=== PATIENT | female | born 1990 | race Caucasian/White ===

== ENCOUNTER 2018-05-19 12:50 | Inpatient (IN) | payer OTHER ==
[~2018-05-19] VITALS: Ht 160 cm; Wt 50.3 kg
[~2018-05-19 12:50] MED LIST: IBU-6600 MG PO; MOTRIN 600600 MG/TAB PO; PERCOCET 325 MG1 TA2 PO; PRENATAL1 TA1 PO; SENOKOT S 50 MG1 TAB PO
[2018-05-19] MEDS ORDERED: MONO-LINYAH 351 TAB PO (13:22)
[2018-05-19 14:40] VITALS: BP 117/66; PULSE 102; TEMP 98.8
[2018-05-19 15:35] VITALS: BP 117/66; PULSE 101; TEMP 98.7
[2018-05-19 19:23] VITALS: BP 99/52; PULSE 88; TEMP 98.4
[2018-05-19 23:36] VITALS: BP 90/48; PULSE 84; TEMP 98.2
[2018-05-20 04:11] VITALS: BP 105/54; PULSE 76; TEMP 98.1
[2018-05-20 07:18] LABS: MEAN CELL VOLUME 93 fl (80.0-100.0); MEAN CORPUSCULAR HEMOGLOBIN 31 pg (27.0-31.0); MEAN CORPUSCULAR HGB CONC 34 g/dl (33.0-37.0); MEAN PLATELET VOLUME 11.3 fl (7.4-10.4); PLATELET COUNT 222 K/mm3 (130-400); RED BLOOD COUNT 3.82 M/mm3 (4.10-5.30); REDCELL DISTRIBUTION WIDTH-CV 11.4 % (11.5-14.5)
[2018-05-20 07:24] LABS: HEMATOCRIT 35.4 % (37.0-47.0)
[2018-05-20 07:28] LABS: CALCIUM 8.1 mg/dL (8.4-10.2); CREATININE, serum 0.57 mg/dL (0.52-1.25); POTASSIUM 3.9 mmol/L (3.4-5.0)
[2018-05-20 07:56] VITALS: BP 108/55; PULSE 76; TEMP 98.1
[2018-05-20 09:26] LABS: BAND 4 % (0-10); BASOPHIL 1 % (0-2); LYMPHOCYTE 21 % (20.0-51.0); NEUTROPHILS 71 % (42.0-75.2); PLATELET ESTIMATE NORMAL (NORMAL)
[2018-05-20 12:02] VITALS: BP 94/55; PULSE 69; TEMP 98.7
[2018-05-20 16:29] VITALS: BP 94/54; PULSE 70; TEMP 98.5
[2018-05-20 20:00] VITALS: BP 105/61; PULSE 86; TEMP 98
[2018-05-21 04:00] VITALS: BP 88/48; PULSE 60; TEMP 98
[2018-05-21 08:42] VITALS: PULSE 66; TEMP 68.2
== END 2018-05-21 10:40 | disposition home or self-care (01) | DRG 373 ==
LOC: COL.ER 12:50 → SURG 13:55
PROVIDERS: Surgery
DX: K35.3 Acute appendicitis with localized peritonitis (principal)
CPT/HCPCS: J1956; J2270; J2405; J2543; J7030; Q9967

== ENCOUNTER 2018-06-12 19:41 | Emergency (ER) | payer OTHER ==
[~2018-06-12] VITALS: Ht 160 cm; Wt 51.8 kg
[~2018-06-12 19:41] MED LIST changes: +MONO-LINYAH 351 TAB PO
[2018-06-12 19:42] VITALS: TEMP 99
[2018-06-12 21:05] LABS: BASO # 0.1 (0.0-0.2); BASO % 0.7 % (0.0-2.0); EOS # 0.4 (0.0-0.7); EOS % 3.9 % (0-4.0); GRAN # 7.4 (1.4-6.5); GRAN % 75.3 % (42.2-75.2); HEMOGLOBIN 12.4 g/dl (12.5-16.0); LYMPH # 1.3 (1.2-3.4); LYMPH % 12.9 % (20.0-51.0); MEAN CELL VOLUME 91 fl (80.0-100.0); MEAN CORPUSCULAR HEMOGLOBIN 31 pg (27.0-31.0); MEAN CORPUSCULAR HGB CONC 34 g/dl (33.0-37.0); MONO # 0.7 (0.1-0.6); MONO % 6.8 % (1.7-9.3); PLATELET COUNT 176 K/mm3 (130-400); RED BLOOD COUNT 4.01 M/mm3 (4.10-5.30); REDCELL DISTRIBUTION WIDTH-CV 11.9 % (11.5-14.5)
[2018-06-12 21:06] LABS: HEMATOCRIT 36.3 % (37.0-47.0)
[2018-06-12 21:20] LABS: ALBUMIN 4.2 gm/dL (3.5-5.0); BILIRUBIN,TOTAL 0.6 mg/dL (0.0-1.0); C-REACTIVE PROTEIN 2.7 mg/dL (0.0-0.9); CALCIUM 8.7 mg/dL (8.4-10.2); CREATININE, serum 0.56 mg/dL (0.52-1.25); POTASSIUM 3.4 mmol/L (3.4-5.0); TOTAL PROTEIN 7.5 gm/dL (6.4-8.2)
[2018-06-12 22:03] VITALS: BP 110/58; PULSE 102
[2018-06-14] MEDS ORDERED: TYLENOL 500MG500 MG PO (07:44)
[2018-06-14] MEDS ORDERED: LEVAQUIN 5500 MG/TA1 PO (07:45)
[2018-06-14] MEDS ORDERED: NORCO 325 MG-51 TAB PO ×2 (11:09→11:10)
== END 2018-06-12 22:05 | disposition home or self-care (01) ==
LOC: COL.ER 19:41
PROVIDERS: Emergency Medicine
DX: J06.9 Acute upper respiratory infection, unspecified (principal); Z88.0 Allergy status to penicillin; Z87.19 Personal history of other diseases of the digestive system
CPT/HCPCS: J1956; J7030